=== PATIENT | male | born 1950 | race Caucasian/White ===

== ENCOUNTER 2023-09-06 07:49 | Outpatient (OUT) | payer MEDICARE, BC, SELFPAY ==
--- NOTE | 2023-09-06 08:04 | ECG_ITS ---
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
--- NOTE | 2023-09-06 08:54 | XR_ITS ---
The [address] [address] Patient Name: FLORIN AGUIRRE MRN: [id number] date: 1950 Sex: M Assigned Patient Location: [facility] Current Patient Location: Accession/Order Number: [id number] Exam Date: 09/06/2023 08:50 Report Date: 09/07/2023 05:10 At the request of: AMANDA LIN Procedure: XR chest 2V EXAMINATION: XR chest 2V HISTORY: Preop exam COMPARISON: No relevant comparison available. FINDINGS: LUNGS: No significant pulmonary parenchymal abnormalities. VASCULATURE: No increased pulmonary vasculature. PLEURA: No pneumothorax, effusion, or pleural thickening. CARDIAC: No cardiomegaly or cardiac silhouette abnormality. MEDIASTINUM: No visible mass or adenopathy. BONES: Irregular sclerotic lesion within proximal left humerus at the diametaphyseal junction. Degenerative changes of acromioclavicular joints. OTHER: Negative. XR/XR chest 2V IMPRESSION: 1. No acute cardiopulmonary process. 2. Irregular osseous lesion within proximal left humerus incompletely included on today's study, but suggestive of an enchondroma. Dedicated radiographs of the left humerus are recommended for further evaluation. Electronically authenticated by: CHRISTIANO FERRER Date: 09/07/2023 05:10
[2023-09-06 09:01] LABS: Basophils Absolute Auto 0.1 10^3/uL (0.0-0.1); Basophils Percent Auto 1.1 % (0.2-2.0); Eosinophils Absolute Auto 0.3 10^3/uL (0.0-0.7); Eosinophils Percent Auto 3.2 % (0.9-7.0); Hematocrit 40.6 % (42.0-54.0); Hemoglobin 13.7 g/dL (14.0-18.0); Immature Granulocytes Abs Auto 0.04 10^3/uL (0.00-0.03); Immature Granulocytes Pct Auto 0.4 % (0.0-0.5); Lymphocytes Absolute Auto 2.6 10^3/uL (1.2-3.8); Lymphocytes Percent Auto 28.1 % (20.5-60.0); Mean Corpuscular HGB Conc 33.7 g/dL (29.9-35.2); Mean Corpuscular Hemoglobin 32.9 pg (25.9-34.0); Mean Corpuscular Volume 97.4 fL (80.0-94.0); Mean Platelet Volume 8.9 fL (9.5-13.5); Monocytes Absolute Auto 0.9 10^3/uL (0.3-0.8); Monocytes Percent Auto 10.1 % (1.7-12.0); Neutrophils Absolute Auto 5.2 10^3/uL (1.4-6.5); Neutrophils Percent Auto 57.1 % (43.0-75.0); Platelet Count 312 10^3/uL (150-450); Red Blood Count 4.17 10^6/uL (4.70-6.10); Red Cell Distribution Width 13.5 % (11.0-15.0); White Blood Count 9.1 10^3/uL (4.0-11.0)
--- NOTE | 2023-09-06 09:07 | PM.PRESUREVA ---
History of Present Illness History of Present Illness Chief complaint: elevated psa lesion Narrative: Patient presents for preadmission testing. The patient states he had an elevated PSA level, he complains of frequency with urination, nocturia, and hesitancy when starting the stream. He denies abdominal pain, dysuria, hematuria, fever, or any other complaints. Review of Systems ROS Narrative REVIEW OF SYSTEMS: Negative except as stated in HPI, ten or more systems reviewed. Constitutional: No fever, chills, weakness ENT: No sore throat or epistaxis Cardiovascular: No edema, chest pain, palpitations, or activity intolerance Respiratory: No shortness of breath, cough, or wheezing Musculoskeletal: No joint pain or swelling Gastrointestinal: No abdominal pain, constipation, diarrhea, or vomiting Genitourinary: No dysuria or hematuria Neurological: No numbness, tingling, weakness, or headache Psychiatric: No mood changes PFSH [facility] Medical History (Updated 09/06/23 @ 08:32 by Esha Ventura NP) Back pain ?M54.9 - Dorsalgia, unspecified (ICD-10) Arthritis ?M19.90 - Unspecified osteoarthritis, unspecified site (ICD-10) Chronic obstructive pulmonary disease ?J44.9 - Chronic obstructive pulmonary disease, unspecified (ICD-10) Prostate nodule ?N40.2 - Nodular prostate without lower urinary tract symptoms (ICD-10) Elevated PSA ?R97.20 - Elevated prostate specific antigen [PSA] (ICD-10) GERD (gastroesophageal reflux disease) ?K21.9 - Gastro-esophageal reflux disease without esophagitis (ICD-10) Abnormal EKG ?R94.31 - Abnormal electrocardiogram [ECG] [EKG] (ICD-10) Hypertension ?I10 - Essential (primary) hypertension (ICD-10) Hearing loss ?H91.90 - Unspecified hearing loss, unspecified ear (ICD-10) Surgical History (Updated 09/06/23 @ 08:32 by Esha Ventura NP) History of colonoscopy ?Z98.890 - Other specified postprocedural states (ICD-10) Hx of LASIK ?Z98.890 - Other specified postprocedural states (ICD-10) H/O hand surgery ?Z98.890 - Other specified postprocedural states (ICD-10) History of cataract extraction ?Z98.49 - Cataract extraction status, unspecified eye (ICD-10) History of arthroplasty of knee ?Z96.659 - Presence of unspecified artificial knee joint (ICD-10) Family History (Updated 09/06/23 @ 08:32 by Esha Ventura NP) Other Family history of hypertension Heart failure Social History (Updated 09/06/23 @ 08:24 by Esha Ventura NP) Within the past year, how often did you have a drink containing alcohol: never Score interpretation: A score less than 4 is consistent with normal alcohol consumption. Smoking status: Former smoker Non-prescribed substance use: denies use Highest level of school completed/degree received: high school graduate Meds Home Medications and Allergies Home Medications ?Medication ?Instructions ?Recorded ?Confirmed ?Type amlodipine 10 mg tablet 10 mg PO DAILY 09/06/23 09/06/23 History budesonide-formoterol HFA 160 2 inh inhalation Q12H 09/06/23 09/06/23 History mcg-4.5 mcg/actuation aerosol inhaler diphenhydramine HCl 50 mg capsule 50 mg PO QPM 09/06/23 09/06/23 History (Nightime Sleep) famotidine 40 mg tablet 40 mg PO DAILY 09/06/23 09/06/23 History olmesartan 40 1 tab PO DAILY 09/06/23 09/06/23 History mg-hydrochlorothiazide 25 mg tablet sildenafil 100 mg tablet 100 mg PO Q24H PRN sexual activity 09/06/23 09/06/23 History Allergies Allergy/AdvReac Type Severity Reaction Status Date / Time lisinopril Allergy angioedema Verified 09/06/23 08:20 Exam Narrative Exam Narrative: Constitutional: Awake, alert, comfortable, well-appearing, nontoxic, interactive, vital signs as charted Head: Normocephalic, atraumatic Neck: Supple, normal appearance, normal range of motion, no meningeal signs, no lymphadenopathy Respiratory: No respiratory distress, breath sounds clear Cardiovascular: Regular rate and rhythm, strong and regular heart tones Abdomen: Nontender, normal bowel sounds, soft, no CVA tenderness Musculoskeletal: Normal gait, no swelling or edema Skin: No rashes or induration, no lesions, only visible skin inspected Neuro: No neurological deficits, normal sensation Psychiatric: Oriented ?3, normal affect Assessment and Plan Assessment and Plan (1) Elevated PSA: (2) Prostate nodule: Plan Transrectal prostate MRI guided fusion biopsy scheduled with Dr. Simeon September 14, 2023.
[2023-09-06 09:32] LABS: INR 0.97; Partial Thromboplastin Time 27.7 sec (22.3-36.2); Prothrombin Time 10.3 sec (9.0-11.6)
[2023-09-06 09:59] LABS: Anion Gap 14.7; BUN Creatinine Ratio 19.9; Calcium 8.8 mg/dL (8.5-10.1); Carbon Dioxide 25.5 mmol/L (21.0-32.0); Chloride 99 mmol/L (98-107); Estimated GFR (African America 60 (>=60); Estimated GFR (Non-African Ame 49 (>=60); Glucose 116 mg/dL (74-106); Potassium 4.2 mmol/L (3.5-5.1); Sodium 135 mmol/L (136-145)
== END 2023-09-06 07:50 | disposition home or self-care (01) ==
LOC: PST 07:53
PROVIDERS: PCP Family Medicine; Visit Provider Urology
DX: Z01.810 Encounter for preprocedural cardiovascular examination (principal); Z01.812 Encounter for preprocedural laboratory examination; Z01.818 Encounter for other preprocedural examination; R97.20 Elevated prostate specific antigen [PSA]; M89.9 Disorder of bone, unspecified
CPT/HCPCS: 36415; 71046; 80048; 85025; 85610; 85730; 93005; G0463

== ENCOUNTER 2023-09-14 09:41 | Day surgery (SDC) | payer MEDICARE, BC, SELFPAY ==
[2023-09-06 08:44] VITALS: BP 126/76; PULSE 74; TEMP 36.6; O2SAT 96; BMI 36.7
[2023-09-14 10:02] VITALS: BP 145/70; PULSE 74; TEMP 36.4; O2SAT 96; BMI 36.7
[2023-09-14] MEDS: LACTATED RINGER'S SOLUTION 1,000 ML 50 ML IV (10:17)
[2023-09-14] MEDS: GENTAMICIN SULFATE 120 MG in 0.9 % SODIUM CHLORIDE 100 ML 206 MG IV (10:18)
[2023-09-14] MEDS: CEFAZOLIN SODIUM/DEXTROSE,ISO 1 GM/50 ML IV.SOLN IV (11:16)
[2023-09-14] MEDS: LIDOCAINE 2% JELLY 20 ML UR (11:32)
[2023-09-14 11:55] VITALS: BP 92/50; PULSE 75; O2SAT 94
--- NOTE | 2023-09-14 11:56 | P.URON_ITS ---
Urology Surgery Operative Note Operative Note Procedure Date: 09/14/23 Time Out Performed: yes Pre-op Diagnosis: Elevated PSA, abnormal KARYNA and PI-RADS 5 lesion on MRI Post-op Diagnosis: same as pre-op Procedures performed: 1. Transrectal ultrasound of the prostate. 2. Transrectal MRI fusion biopsies of the prostate. Anesthesia: MAC and local Primary Surgeon: Inder Simeon Complications: None Estimated blood loss (mL): 10 Findings: Large hypoechoic area rightPosterior mid prostate Specimens: 1. 9 biopsies from the area of interest. 2. 6 biopsies going from the base towards the apex on the left sent separately and 6 biopsies similarly from the base towards the apex on the right sent separately Drains: None Indications for Procedures: This gentleman has an elevated PSA of4.6 and he has an abnormal KARYNA in the form of his entire right half of the prostate is hard. Prostate MRI revealed a large right-sided PI-RADS 5 lesion. He now presents for MRI fusion biopsies of the prostate. He has signed an informed consent after risks were explained. Some of these risks include bleeding, infection, urosepsis and anesthesia to name a few. Detailed description of Procedure: The patient was kept on the [facility] bed and brought into the operating room. Timeout was done by all parties in the room. We all agreed upon the patient's identification and the planned procedures for this patient. MAC anesthesia was then administered after the patient was repositioned into the left lateral decu bitus position. 2% lidocaine gel was passed per rectum. The Navigo System ultrasound probe was passed per rectum. Segmentation was then done so as to if superimpose the MRI images on the live ultrasound. We then targeted the area of interest and we took 9 biopsies through this area of interest. These were all sent separately labeled area of interest. We then did mapped out biopsies starting on the left side going from the base towards the apex. We divided up into 3 levels and took 2 biopsies from each level. A similar maneuver was done on the right side.These biopsies were also sent separately. The ultrasound probe was then removed. He was then transferred to PACU in stable condition. He has been instructed preoperatively to finish his oral antibiotics and if he develops a fever near 101 and/or shaking chills he needs to present to the emergency room for IV antibiotics.
[2023-09-14 12:10] VITALS: BP 94/50; PULSE 75; O2SAT 94
--- NOTE | 2023-09-14 12:26 | PC.NURSE ---
No active rectal bleeding noted
--- NOTE | 2023-09-14 12:29 | PC.NURSE ---
Denies urge to void; no active rectal drainage noted
[2023-09-14 12:37] VITALS: BP 92/54; PULSE 74; O2SAT 98
--- NOTE | 2023-09-14 12:38 | PC.NURSE ---
Denies urge to void
[2023-09-14 13:00] VITALS: BP 112/61; PULSE 74; O2SAT 95
--- NOTE | 2023-09-14 13:21 | PC.NURSE ---
Up to bathroom and voids clear yellow without difficulty. No active rectal bleeding.
== END 2023-09-14 13:10 | disposition home or self-care (01) ==
PROVIDERS: PCP Family Medicine; Visit Provider Urology
PROC: (CPT 55700; principal; 2023-09-14 10:45)
DX: C61 Malignant neoplasm of prostate (principal); R97.20 Elevated prostate specific antigen [PSA]; N40.2 Nodular prostate without lower urinary tract symptoms; R39.89 Other symptoms and signs involving the genitourinary system; Z87.891 Personal history of nicotine dependence; J44.9 Chronic obstructive pulmonary disease, unspecified; I10 Essential (primary) hypertension; K21.9 Gastro-esophageal reflux disease without esophagitis; M19.90 Unspecified osteoarthritis, unspecified site
CPT/HCPCS: 55700; 36415; 88305; J0690; J1580; J2371; J2704